=== PATIENT | female | born 1960 | race Caucasian/White ===

== ENCOUNTER 2020-12-11 16:22 | Outpatient (REF) | payer OTHER, SELFPAY ==
--- NOTE | ~2020-12-11 | US_ITS ---
EXAMINATION: US VENOUS ULTRASOUND WITH DOPPLER LOWER EXTREMITY, RIGHT CLINICAL INFORMATION: Right leg pain COMPARISON: None TECHNIQUE: Ultrasound of the deep veins is performed from the hip to the calf with compression sonography and color and pulse Doppler assessment. Spectral analysis with color-flow imaging is performed. FINDINGS: There is normal venous compression and respiratory variation and augmented flow. The visualized common femoral vein, superficial femoral vein, profunda femoral vein, popliteal vein, and the trifurcation region shows no evidence of deep venous thrombosis. There is no popliteal fossa cyst. US/US venous duplex LE RT IMPRESSION: No DVT demonstrated in the right lower extremity.
== END 2020-12-11 16:23 | disposition home or self-care (01) ==
LOC: HO.HMGCX 16:22
PROVIDERS: PCP Internal Medicine; Visit Provider Internal Medicine
DX: I82.409 Acute embolism and thrombosis of unspecified deep veins of unspecified lower extremity (principal)
CPT/HCPCS: 93971

== ENCOUNTER 2021-02-08 15:01 | Outpatient (REF) | payer OTHER, SELFPAY ==
--- NOTE | ~2021-02-08 | XR_ITS ---
EXAMINATION: XR KNEE, RIGHT CLINICAL INFORMATION: Pain right knee COMPARISON: None TECHNIQUE: Four views of the right knee. FINDINGS: A suprapatellar bursal effusion is noted on the lateral view. No fractures are identified. Minimal subchondral sclerosis of the medial tibial plateau is visualized. XR/XR knee RT 4V IMPRESSION: *Right knee joint effusion. *Minimal subchondral sclerosis of the medial tibial plateau which may represent early radiographic evidence of mild osteoarthritis.
== END 2021-02-08 15:02 | disposition home or self-care (01) ==
LOC: HO.HMGCX 15:01
PROVIDERS: PCP Internal Medicine; Visit Provider Physician Assistant Medical
DX: M25.561 Pain in right knee (principal)
CPT/HCPCS: 73564

== ENCOUNTER 2021-03-11 12:23 | Outpatient (REF) | payer OTHER, SELFPAY ==
--- NOTE | ~2021-03-11 | XR_ITS ---
EXAMINATION: XR KNEE STANDING, BILATERAL XR KNEE, RIGHT CLINICAL INFORMATION: Pain in right knee. COMPARISON: None available at the time of this dictation. TECHNIQUE: Bilateral frontal standing, right lateral patella sunrise view. FINDINGS: BONES: No fracture or dislocation is present. JOINTS: Narrowing of joint spaces and developed osteophytes from the edges of articular surfaces suggest degenerative osteoarthritis. SOFT TISSUE: Normal. XR/XR knee RT 2V IMPRESSION: Mild bilateral degenerative osteoarthritis involving medial more than lateral compartment symmetrically involving both sides.
--- NOTE | ~2021-03-11 | XR_ITS ---
EXAMINATION: XR KNEE STANDING, BILATERAL XR KNEE, RIGHT CLINICAL INFORMATION: Pain in right knee. COMPARISON: None available at the time of this dictation. TECHNIQUE: Bilateral frontal standing, right lateral patella sunrise view. FINDINGS: BONES: No fracture or dislocation is present. JOINTS: Narrowing of joint spaces and developed osteophytes from the edges of articular surfaces suggest degenerative osteoarthritis. SOFT TISSUE: Normal. XR/XR knee standing BI IMPRESSION: Mild bilateral degenerative osteoarthritis involving medial more than lateral compartment symmetrically involving both sides.
== END 2021-03-11 12:24 | disposition home or self-care (01) ==
LOC: HO.HOSX 12:23
PROVIDERS: Visit Provider Physician Assistant
DX: M17.11 Unilateral primary osteoarthritis, right knee (principal); M25.562 Pain in left knee
CPT/HCPCS: 73560; 73565

== ENCOUNTER 2021-04-19 08:32 | Outpatient (REF) | payer OTHER, SELFPAY ==
[2021-04-19 11:36] LABS: Hematocrit 46.2 % (37.0-47.0); Hemoglobin 15.2 g/dl (12.0-16.0); Mean Corpuscular HGB Conc 32.9 g/dl (31.0-35.0); Mean Corpuscular Hemoglobin 29.3 pg (27.0-33.0); Mean Corpuscular Volume 89.2 fL (80.0-98.0); Mean Platelet Volume 11.9 fL (9.4-12.3); Platelet Count 207 X10*3/uL (160-400); Red Blood Count 5.18 X10*6/uL (4.20-5.50); Red Cell Distribution Width 12.4 % (11.0-16.0); White Blood Count 4.4 X10*3/uL (4.8-10.8)
[2021-04-19 12:14] LABS: Alanine Aminotransferase 17 U/L (0-31); Alkaline Phosphatase 57 U/L (39-117); Anion Gap 12 (12-20); Aspartate Amino Transferase 19 U/L (5-31); Bilirubin Total 0.7 mg/dL (0.0-1.0); Blood Urea Nitrogen 13 mg/dL (9-16); Calcium 9.4 mg/dL (8.4-10.2); Carbon Dioxide 28 mmol/L (22-29); Chloride 107 mmol/L (96-108); Cholesterol 214 mg/dL; Estimated Glomerular Filt Rate > 60; Glucose Fasting 103 mg/dL (60-99); HDL Cholesterol 75 mg/dL; LDL Cholesterol Calculated 125 mg/dl; Potassium 5.5 mmol/L (3.3-5.1); Sodium 141 mmol/L (135-145); TSH reflex Free T4 1.07 uIU/mL (0.32-4.0); Total Protein 6.9 g/dL (6.5-8.0); Triglycerides 74 mg/dL; Vitamin D 25-OH Total 25.5 ng/mL (>30)
== END 2021-04-19 08:33 | disposition home or self-care (01) ==
LOC: HO.HMGCLDS 08:32
PROVIDERS: PCP Internal Medicine; Visit Provider Internal Medicine
DX: Z00.00 Encounter for general adult medical examination without abnormal findings (principal)
CPT/HCPCS: 36415; 80053; 80061; 82306; 84443; 85027

== ENCOUNTER 2021-06-08 12:46 | Outpatient (RCR) | payer OTHER, SELFPAY ==
--- NOTE | 2021-06-08 19:36 | MHC.PT.EP ---
[facility] [place] Office [place] Office [place] Office [address] [phone] F: [phone] F: [phone] F: [phone] F: [phone] Physical Therapy Plan of Care Date of Evaluation: Date of Surgery: Diagnosis: OA of R knee. Assessment: Pt is a 61 y/o female referred to PT for eval and treat of R knee OA who presents with signs and symptoms consistent with R knee dysfunction resulting in decreased tolerance and ability to perform ambulatory and standing tasks for duration, as well as negotiating stairs, and heavy HH chores secondary to decreased B hip and R knee strength, decreased R knee extension ROM, as well as decreased posture, TTP of medial joint line, and pain. Pt is deemed an appropriate candidate to receive skilled PT in order to address her physical limitations to improve her functional ability. Frequency and Duration: The patient will be seen 2 x / wk x 4 wks. Short Term Goals: Initiate HEP with evidence of compliance. Template Maker Goals: I with HEP. Pt will ascend and descend 1 fl of stairs with reciprocal fashion; initial: non reciprocal and painful. Improve R knee extension MMT by at least 1/2 MMT grade; initial 4/5 with mild pain. pt will report no longer painful walking long distances. Treatment Plan: Modalities to reduce pain, spasms and effusion. Manual therapy to restore motion and function. Therapeutic exercise to improve strength and flexibility. Neuromuscular re-education for posture and balance. Therapeutic activities to return to functional activities of daily living. Electronically signed by: Chico Polanco PT. Please sign and return to therapist. Thank you for your referral.
--- NOTE | 2021-06-11 10:30 | MHC.PT.DC ---
[facility] [place] Office [place] Office [place] Office [address] [phone] F: [phone] F: [phone] F: [phone] F: [phone] Physical Therapy Discharge Report Diagnosis: OA of R knee. Date of Surgery: Date of Evaluation: 06/08/21 Date of Discharge: 06/11/21 Treatments to Date: 1 Cancellations to Date: No Shows to Date: Discharge Status: Patient Elected to Stop Discharge Summary: Electronically signed by: Chico Polanco PT. Please sign and return to therapist. Thank you for your referral.
== END 2021-06-11 10:30 | disposition home or self-care (01) ==
LOC: HO.PTCHIC 12:46
PROVIDERS: PCP Internal Medicine; Visit Provider Internal Medicine
DX: M17.11 Unilateral primary osteoarthritis, right knee (principal)
CPT/HCPCS: 97110; 97161

== ENCOUNTER 2022-07-26 07:10 | Outpatient (REF) | payer OTHER, SELFPAY ==
[2022-07-26 11:29] LABS: Hematocrit 44.8 % (37.0-47.0); Hemoglobin 14.5 g/dl (12.0-16.0); Mean Corpuscular HGB Conc 32.4 g/dl (31.0-35.0); Mean Corpuscular Hemoglobin 28.7 pg (27.0-33.0); Mean Corpuscular Volume 88.5 fL (80.0-98.0); Mean Platelet Volume 11.9 fL (9.4-12.3); Platelet Count 197 X10*3/uL (160-400); Red Blood Count 5.06 X10*6/uL (4.20-5.50); Red Cell Distribution Width 12.7 % (11.0-16.0); White Blood Count 4.7 X10*3/uL (4.8-10.8)
[2022-07-26 11:44] LABS: Alanine Aminotransferase 19 U/L (0-31); Albumin Level 3.9 g/dL (3.5-5.0); Alkaline Phosphatase 61 U/L (39-117); Anion Gap 11 (12-20); Aspartate Amino Transferase 19 U/L (5-31); Bilirubin Total 0.8 mg/dL (0.0-1.0); Blood Urea Nitrogen 10 mg/dL (9-16); Calcium 9.5 mg/dL (8.4-10.2); Carbon Dioxide 27 mmol/L (22-29); Chloride 109 mmol/L (96-108); Cholesterol 222 mg/dL; Estimated Glomerular Filt Rate > 60; Glucose Fasting 100 mg/dL (60-99); HDL Cholesterol 75 mg/dL; LDL Cholesterol Calculated 130 mg/dl; Potassium 5.5 mmol/L (3.3-5.1); Sodium 141 mmol/L (135-145); Total Protein 6.7 g/dL (6.5-8.0); Triglycerides 89 mg/dL
[2022-07-26 12:03] LABS: TSH reflex Free T4 1.32 uIU/mL (0.32-4.0); Vitamin D 25-OH Total 21.6 ng/mL (>30)
== END 2022-07-26 07:11 | disposition home or self-care (01) ==
LOC: HO.HMGCLDS 07:10
PROVIDERS: PCP Internal Medicine; Visit Provider Internal Medicine
DX: Z00.00 Encounter for general adult medical examination without abnormal findings (principal)
CPT/HCPCS: 36415; 80053; 80061; 82306; 84443; 85027

== ENCOUNTER 2022-08-04 07:14 | Outpatient (REF) | payer OTHER, SELFPAY ==
[2022-08-04 11:56] LABS: Anion Gap 12 (12-20); Blood Urea Nitrogen 16 mg/dL (9-16); Calcium 9.5 mg/dL (8.4-10.2); Carbon Dioxide 26 mmol/L (22-29); Chloride 104 mmol/L (96-108); Estimated Glomerular Filt Rate > 60; Glucose Random 82 mg/dL (60-115); Sodium 138 mmol/L (135-145)
== END 2022-08-04 07:15 | disposition home or self-care (01) ==
LOC: HO.HMGCLDS 07:14
PROVIDERS: PCP Internal Medicine; Visit Provider Internal Medicine
DX: E87.5 Hyperkalemia (principal)
CPT/HCPCS: 36415; 80048

== ENCOUNTER 2023-01-12 07:02 | Outpatient (REF) | payer OTHER, SELFPAY ==
[2023-01-12 12:13] LABS: Alanine Aminotransferase 21 U/L (0-31); Alkaline Phosphatase 59 U/L (39-117); Anion Gap 9 (12-20); Aspartate Amino Transferase 21 U/L (5-31); Bilirubin Total 0.5 mg/dL (0.0-1.0); Blood Urea Nitrogen 17 mg/dL (9-16); Calcium 9.5 mg/dL (8.4-10.2); Carbon Dioxide 29 mmol/L (22-29); Chloride 105 mmol/L (96-108); Cholesterol 220 mg/dL (<200); Estimated Glomerular Filt Rate > 60; Glucose Fasting 88 mg/dL (60-99); HDL Cholesterol 81 mg/dL (>40); LDL Cholesterol Calculated 125 mg/dL (<100); Potassium 5.1 mmol/L (3.3-5.1); Sodium 138 mmol/L (135-145); Total Protein 7.2 g/dL (6.5-8.0); Triglycerides 73 mg/dL (<150)
== END 2023-01-12 07:03 | disposition home or self-care (01) ==
LOC: HO.HMGCLDS 07:02
PROVIDERS: PCP Internal Medicine; Visit Provider Internal Medicine
DX: Z00.00 Encounter for general adult medical examination without abnormal findings (principal); E87.5 Hyperkalemia; R03.0 Elevated blood-pressure reading, without diagnosis of hypertension
CPT/HCPCS: 36415; 80053; 80061

== ENCOUNTER 2023-02-17 10:53 | Outpatient (AMB) | payer OTHER, SELFPAY ==
[2023-02-17 10:55] VITALS: BP 154/90; PULSE 92; O2SAT 95; BMI 30.3
--- NOTE | 2023-02-17 10:55 | MHC.PC.OV ---
Vital Signs 02/17/23 10:55 Height 5 ft 5 in Weight 182 lb BMI 30.3 BP 154/90 H Blood Pressure Location Lt brachial Position Sitting Pulse 92 Pulse Source Pulse Oximeter Pulse Oximetry (%) 95 Oxygen Delivery Method Room Air Intake Visit Reasons: 6 month follow up Hyperkalemia Intake Note: Pt is here today for a 6 months follow up visit. Allergies No Known Allergies Allergy (Verified 02/17/23 10:56) Medication List - Last Reconciled 02/17/23 by Nabila Jarquin MD No Known Home Meds Tobacco use date assessed: 02/17/23 Fall risk assessment: No Falls in past year Last assessed Fall Risk: 02/17/23 Dental Screening Dental Screen Date: 02/17/23 Did you have a dental visit in the last 12 months?: Yes Did you have a dental problem in the last 6 months where you did not have access to dental care?: No Was dental information given to patient?: Patient has dentist HPI 6 month follow up Hyperkalemia HPI Details Pt presents for f/u of hypertension. She denies chest pain shortness of breath or headaches. Patient reports checking her blood pressure at home with the readings at 140/85 on average. She has been using a lot of cooking salt for many years, [facility] Medical History Colonoscopy refused Annual physical exam Family History Father No problems noted. Mother Hypertension Brother Bone cancer Lung cancer Social History Housing: House Patient Tobacco Use Status: Former Tobacco user (over 15 years ago) e-Cigarette/Vaping Use: Never Used Current occupational status: employed Cognitive needs: No Hearing needs: No Vision needs: Yes Questionnaire PHQ-9 Over the last 2 weeks, how often have you been bothered by any of the following problems? 1. Little interest or pleasure in doing things: not at all 2. Feeling down, depressed, or hopeless: not at all 3. Trouble falling or staying asleep, or sleeping too much: not at all 4. Feeling tired or having little energy: not at all 5. Poor appetite or overeating: not at all 6. Feeling bad about yourself - or that you are a failure or have let yourself or your family down: not at all 7. Trouble concentrating on things, such as reading the newspaper or watching television: not at all 8. Moving or speaking so slowly that other people could have noticed. Or the opposite - being so fidgety or restless that you have been moving around a lot more than usual: not at all 9. Thoughts that you would be better off or of hurting yourself in some way: not at all Total score: 0 Depression Screening Interpretation: Negative Depression Screening Done: Yes Source: Developed by Drs. Taco Vega, Asha Case, Gerson Montero and colleagues, with an educational kathryn from [email or web address]. Thrive Questionnaire Date Thrive assessed: 02/17/23 I am a: Patient What is your living situation today?: I have a steady place to live Within the past 12 months, did the food you bought not last and you didn't have the money to get more?: Never true Within the past 12 months, did you worry whether your food would run out before you got money to buy more?: Never true Do you have trouble paying for medicines?: No Do you have trouble getting transportation to medical appointments?: No Do you have trouble paying your heating and electricity bill?: No Do you have trouble taking care of your child, family member or friend?: No Do you have trouble with day-to-day activities such as bathing, preparing meals, shopping, managing finances, etc.?: No Are you currently unemployed and looking for a job?: No Are you interested in more education?: No Please select the resources that you would like help with: None Currently or been in a relationship where the following occur: no concerns reported AUDIT C Alcohol Use Questionnaire (AUDIT-C) 1. How often do you have a drink containing alcohol?: Never 3. How often do you have six or more drinks on one occasion?: Never Total Score: 0 FRANCES-7 AMB Questionnaire FRANCES-7 Date FRANCES - 7 assessed: 02/17/23 Feeling nervous, anxious, or on edge: 0 = Not at all Not being able to stop or control worryin = Not at all Worrying too much about different things: 0 = Not at all Trouble relaxin = Not at all Being so restless that it is hard to sit still: 0 = Not at all Becoming easily annoyed or irritable: 0 = Not at all Feeling afraid as if something awful might happen: 0 = Not at all Total FRANCES-7 score (0-4 normal; 5-9 mild; 10-14 moderate; 15-21 severe): 0 Source: Developed by Drs. Taco Vega, Asha Case, Gerson Montero and colleagues, with an educational kathryn from [email or web address]. Review of Systems Const All systems reviewed & are unremarkable except as noted in HPI and below Reports no additional complaints Eyes Reports no additional complaints ENT Reports no additional complaints Card Reports no additional complaints Resp Reports no additional complaints GI Reports no additional complaints Reports no additional complaints Physical exam (Primary Care) Vital Signs: Last Vital Signs Pulse 92 02/17/23 10:55 BP 154/90 H 02/17/23 10:55 Pulse Ox 95 02/17/23 10:55 Oxygen Delivery Method Room Air 02/17/23 10:55 BMI result Body Mass Index 30.3 Tobacco/Smoking Status: Tobacco use Status Tobacco use date assessed 02/17/23 02/17/23 10:59 Patient Tobacco Use Status Former Tobacco user (over 15 02/17/23 10:59 years ago) e-Cigarette/Vaping Use Never Used 02/17/23 10:59 PHQ-9: PHQ-9 Score PHQ-9: Total score 0 02/17/23 11:44 Depression Screening Interpretation: Negative Thrive Assessment: Date of Thrive Assessment Date Thrive assessed 02/17/23 02/17/23 11:05 Currently or been in a relationship where the following occur: no concerns reported Const General: no acute distress HENMT Head: Yes normal to inspection Ears: hearing grossly normal bilaterally Throat: Yes posterior oropharynx normal Neck Neck: Yes no lymphadenopathy and Yes supple Resp Effort & Inspection: normal respiratory effort Auscultation: clear to auscultation bilaterally Cardio Rhythm: regular rhythm Heart sounds: S1 normal heart sound present and S2 normal heart sound present GI Inspection: Yes normal to inspection Palpation (GI): Soft to palpation Percussion: Yes normal to percussion Auscultation: normal bowel sounds Assessment and Plan Assessment & Plan (1) Hyperkalemia: Code(s): E87.5 - Hyperkalemia Plan: Monitor potassium level (2) Annual physical exam: Code(s): Z00.00 - Encounter for general adult medical examination without abnormal findings Plan: Return for physical in 6 months with a fasting labs before (3) Positive colorectal cancer screening using Cologuard test: Code(s): R19.5 - Other fecal abnormalities Plan: Patient will have a colonoscopy (4) Elevated BP without diagnosis of hypertension: Comment: Patient refuses to take medications for hypertension Code(s): R03.0 - Elevated blood-pressure reading, without diagnosis of hypertension Plan: Low sodium diet increase physical activity weight loss discussed with the patient. She is refusing to take medication for hypertension. the risks of untreated hypertension including [place] stroke sudden kidney failure discussed with the patient. Orders: Orders Comprehensive [place]. Panel Fast 6 Months E87.5 - Hyperkalemia, Z00.00 - Encounter for general adult medical examination without abnormal findings Complete Blood Count Auto Diff 6 Months E87.5 - Hyperkalemia, Z00.00 - Encounter for general adult medical examination without abnormal findings Lipid Panel 6 Months E87.5 - Hyperkalemia, Z00.00 - Encounter for general adult medical examination without abnormal findings TSH reflex Free T4 6 Months E87.5 - Hyperkalemia, Z00.00 - Encounter for general adult medical examination without abnormal findings Vitamin D 25-OH Total 6 Months E87.5 - Hyperkalemia, Z00.00 - Encounter for general adult medical examination without abnormal findings Coding Level of Care Code Est Pt Level 4 (89463) Diagnoses Hyperkalemia E87.5 Annual physical exam Z00.00 Positive colorectal cancer screening using Cologuard test R19.5 Elevated BP without diagnosis of hypertension R03.0
== END 2023-02-17 14:57 | disposition home or self-care (01) ==
PROVIDERS: PCP Internal Medicine; Visit Provider Internal Medicine
DX: E87.5 Hyperkalemia (principal); Z00.00 Encounter for general adult medical examination without abnormal findings; R19.5 Other fecal abnormalities; R03.0 Elevated blood-pressure reading, without diagnosis of hypertension
CPT/HCPCS: 99214

== ENCOUNTER 2023-02-28 13:44 | Outpatient (AMB) | payer OTHER, SELFPAY ==
[2023-02-28 13:46] VITALS: BP 146/86; PULSE 94; O2SAT 97; BMI 30.3
--- NOTE | 2023-02-28 13:46 | A.OFFPC_ITS ---
Vital Signs 02/28/23 13:46 Height 5 ft 5 in Weight 182 lb BMI 30.3 BP 146/86 H Blood Pressure Location Lt brachial Position Sitting Pulse 94 Pulse Source Pulse Oximeter Pulse Oximetry (%) 97 Oxygen Delivery Method Room Air Intake Visit Reasons: Follow up BP Intake Note: Pt is here today for a follow up visit on BP. Allergies No Known Allergies Allergy (Verified 02/28/23 13:49) Medication List - Last Reconciled 02/28/23 by Nabila Jarquin MD meclizine 25 mg PO BID PRN olmesartan 5 mg PO DAILY Tobacco use date assessed: 02/28/23 HPI Follow up BP HPI Details Patient presents for the follow-up on hypertension. She has been checking her blood pressure at home with the readings of the highest 150/90. Patient denies headache chest pain shortness of breath, [facility] Medical History (Updated 02/28/23 @ 14:20 by Nabila Jarquin MD) Colonoscopy refused Annual physical exam Family History Father No problems noted. Mother Hypertension Brother Bone cancer Lung cancer Social History Housing: House Patient Tobacco Use Status: Former Tobacco user (over 15 years ago) e-Cigarette/Vaping Use: Never Used Current occupational status: employed Cognitive needs: No Hearing needs: No Vision needs: Yes Questionnaire Thrive Questionnaire Date Thrive assessed: 02/17/23 FRANCES-7 AMB Questionnaire FRANCES-7 Date FRANCES - 7 assessed: 02/17/23 Source: Developed by Drs. Taco Vega, Asha Case, Gerson Montero and colleagues, with an educational kathryn from [employer]. Review of Systems Const All systems reviewed & are unremarkable except as noted in HPI and below Reports no additional complaints Eyes Reports no additional complaints ENT Reports no additional complaints Card Reports no additional complaints Resp Reports no additional complaints GI Reports no additional complaints Reports no additional complaints Physical exam (Primary Care) Vital Signs: Last Vital Signs Pulse 94 02/28/23 13:46 BP 146/86 H 02/28/23 13:46 Pulse Ox 97 02/28/23 13:46 Oxygen Delivery Method Room Air 02/28/23 13:46 BMI result Body Mass Index 30.3 Tobacco/Smoking Status: Tobacco use Status Tobacco use date assessed 02/28/23 02/28/23 13:52 Patient Tobacco Use Status Former Tobacco user (over 15 02/28/23 13:46 years ago) e-Cigarette/Vaping Use Never Used 02/28/23 13:46 Thrive Assessment: Date of Thrive Assessment Date Thrive assessed 02/17/23 02/28/23 13:46 Const General: no acute distress HENMT Head: Yes normal to inspection Face and sinus: Yes normal facial exam Throat: Yes posterior oropharynx normal Eyes General: appearance normal, both eyes and all related structures Neck Neck: Yes supple Resp Effort & Inspection: normal respiratory effort Auscultation: clear to auscultation bilaterally Cardio Rhythm: regular rhythm Heart sounds: S1 normal heart sound present and S2 normal heart sound present GI Inspection: Yes normal to inspection Palpation (GI): Soft to palpation Assessment and Plan Assessment & Plan (1) HTN (hypertension): Code(s): I10 - Essential (primary) hypertension Plan: Start 5 mg of olmesartan, increase physical activity weight loss discussed with the patient, check basic metabolic panel in 1 week and follow-up in 1 month Orders: Orders Basic Metabolic Panel 1 Week I10 - Essential (primary) hypertension Medications: New olmesartan 5 mg PO DAILY 90 tabs 0RF Coding Level of Care Code Est Pt Level 3 (06651) Diagnoses HTN (hypertension) I10
== END 2023-02-28 14:21 | disposition home or self-care (01) ==
PROVIDERS: PCP Internal Medicine; Visit Provider Internal Medicine
DX: I10 Essential (primary) hypertension (principal)
CPT/HCPCS: 99213

== ENCOUNTER 2023-03-08 06:56 | Outpatient (REF) | payer OTHER, SELFPAY ==
[2023-03-08 11:50] LABS: Anion Gap 12 (12-20); Blood Urea Nitrogen 17 mg/dL (9-16); Calcium 9.3 mg/dL (8.4-10.2); Carbon Dioxide 25 mmol/L (22-29); Chloride 106 mmol/L (96-108); Estimated Glomerular Filt Rate > 60; Glucose Random 88 mg/dL (60-115); Potassium 3.8 mmol/L (3.3-5.1); Sodium 139 mmol/L (135-145)
== END 2023-03-08 06:57 | disposition home or self-care (01) ==
LOC: HO.HMGCLDS 06:56
PROVIDERS: PCP Internal Medicine; Visit Provider Internal Medicine
DX: I10 Essential (primary) hypertension (principal)
CPT/HCPCS: 36415; 80048

== ENCOUNTER 2023-04-03 13:59 | Outpatient (AMB) | payer OTHER, SELFPAY ==
--- NOTE | 2023-04-03 14:16 | MHC.PC.OV ---
Vital Signs 04/03/23 14:17 Height 5 ft 5 in Weight 180 lb BMI 30.0 BP 118/66 Blood Pressure Location Lt brachial Position Sitting Pulse 80 Pulse Source Pulse Oximeter Pulse Oximetry (%) 99 Oxygen Delivery Method Room Air Intake Visit Reasons: 1 Month follow up Intake Note: Pt is here today for 1 month follow up visit on BP. Allergies No Known Allergies Allergy (Verified 04/03/23 14:19) Medication List - Last Reconciled 04/03/23 by Nabila Jarquin MD olmesartan 5 mg PO DAILY Tobacco use date assessed: 02/28/23 HPI 1 Month follow up HPI Details PATIENT PRESENTS FOR THE FOLLOW-UP ON HYPERTENSION. PFSH Medical History Colonoscopy refused Annual physical exam Family History Father No problems noted. Mother Hypertension Brother Bone cancer Lung cancer Social History Housing: House Patient Tobacco Use Status: Former Tobacco user (over 15 years ago) e-Cigarette/Vaping Use: Never Used Current occupational status: employed Cognitive needs: No Hearing needs: No Vision needs: Yes Questionnaire Thrive Questionnaire Date Thrive assessed: 02/17/23 FRANCES-7 AMB Questionnaire FRANCES-7 Date FRANCES - 7 assessed: 02/17/23 Source: Developed by Drs. Taco Vega, Asha Case, Gerson Montero and colleagues, with an educational kathryn from [employer]. Review of Systems Const All systems reviewed & are unremarkable except as noted in HPI and below Reports no additional complaints Eyes Reports no additional complaints ENT Reports no additional complaints Card Reports no additional complaints Resp Reports no additional complaints GI Reports no additional complaints Physical exam (Primary Care) Vital Signs: Last Vital Signs Pulse 80 04/03/23 14:17 BP 118/66 04/03/23 14:17 Pulse Ox 99 04/03/23 14:17 Oxygen Delivery Method Room Air 04/03/23 14:17 BMI result Body Mass Index 30.0 Tobacco/Smoking Status: Tobacco use Status Tobacco use date assessed 02/28/23 04/03/23 14:20 Patient Tobacco Use Status Former Tobacco user (over 15 04/03/23 14:20 years ago) e-Cigarette/Vaping Use Never Used 04/03/23 14:20 Thrive Assessment: Date of Thrive Assessment Date Thrive assessed 02/17/23 04/03/23 14:20 Const General: no acute distress HENMT Head: Yes normal to inspection Throat: Yes posterior oropharynx normal Resp Effort & Inspection: normal respiratory effort Auscultation: clear to auscultation bilaterally Cardio Rhythm: regular rhythm Heart sounds: S1 normal heart sound present and S2 normal heart sound present Assessment and Plan Assessment & Plan (1) HTN (hypertension): Code(s): I10 - Essential (primary) hypertension Plan: Continue olmesartan low-sodium diet regular physical activity. pt will return in July for physical with a fasting labs before Medications: Refilled olmesartan 5 mg PO DAILY 90 tabs 3RF Coding Level of Care Code Est Pt Level 3 (65437) Diagnoses HTN (hypertension) I10
[2023-04-03 14:17] VITALS: BP 118/66; PULSE 80; O2SAT 99
== END 2023-04-03 14:50 | disposition home or self-care (01) ==
PROVIDERS: PCP Internal Medicine; Visit Provider Internal Medicine
DX: I10 Essential (primary) hypertension (principal)
CPT/HCPCS: 99213

== ENCOUNTER 2023-08-30 08:16 | Outpatient (AMB) | payer OTHER, SELFPAY ==
--- NOTE | 2023-08-30 08:42 | MHC.OFFWIV ---
Intake Vital Signs 08/30/23 08:45 Height 5 ft 5 in Weight 187 lb BMI 31.1 BP 120/82 Blood Pressure Location Rt brachial Position Sitting Pulse 90 Pulse Source Pulse Oximeter Temp 98.3 F Temp Source Oral Pulse Oximetry (%) 97 Oxygen Delivery Method Room Air Intake Visit Reasons: EP LT leg, red/bleeding/itch ?Poison Suzie Intake Note: pt here c/o painful, itchy rash LT leg Patient Tobacco Use Status: Former Tobacco user (over 15 years ago) Allergies No Known Allergies Allergy (Verified 08/30/23 08:42) Do you need a note to return to daycare/school/sports/work: No HPI HPI Comments History of Present Illness Details She presents for L rash x a few weeks Little bit on R ankle. No where else on body She denies similar rashes in past + itchy No pain, 0/10 Feels hot; no fevers She tried triple antibiotic ointment and cortisone She was working outside a little PFSH Medical History Colonoscopy refused Annual physical exam Family History Father No problems noted. Mother Hypertension Brother Bone cancer Lung cancer Social History Housing: House Patient Tobacco Use Status: Former Tobacco user (over 15 years ago) e-Cigarette/Vaping Use: Never Used Current occupational status: employed Cognitive needs: No Hearing needs: No Vision needs: Yes Review of Systems Const Denies chills and Denies fever(s) Card Denies chest pain and Denies dyspnea Resp Denies dyspnea Musc Denies back pain Skin/Breast Reports pruritus, Reports lesions and Reports rash Physical Exam Vital Signs: Last Vital Signs Temp 98.3 F 08/30/23 08:45 Pulse 90 08/30/23 08:45 BP 120/82 08/30/23 08:45 Pulse Ox 97 08/30/23 08:45 Oxygen Delivery Method Room Air 08/30/23 08:45 BMI result Body Mass Index 31.1 General: Non-toxic, NAD. Speaking full sentences. Skin: Warm dry throughout. LLE pt has erythematous open and scabbed lesions with + excoriations along anterior L duvall and lateral L ankle. No bleeding or active discharge. Eye: EOMI Respiratory: No respiratory distress MSK: Full ROM extremities. Neurology: A/O. No aphasia or facial droop. Gait without abnormality Psych: Good mood and affect Assessment & Plan Assessment & Plan (1) Contact dermatitis: Code(s): L25.9 - Unspecified contact dermatitis, unspecified cause Qualifiers: Contact dermatitis type: irritant Contact dermatitis trigger: unspecified trigger Qualified Code(s): L24.9 - Irritant contact dermatitis, unspecified cause Plan: Patient seen and evaluated. Non-toxic appearing No cellulitis on exam Prednisone to take with food. Avoid alcohol and nsaids Discussed triple angibiotic on open areas. D/C hydrocortisone ointment Avoid scratching Patient gave verbal understanding and had no additional questions or concerns at time of discharge All questions answered Medications: New prednisone see taper instructions; 60mg po qd x 2 days, 50mg po qd x 2 days, 40mg po qd x 2 days, 30mg po qd x 2 days, 20mg po qd x 2 days then 10mg po qd x 2 days 10 mg PO DIRECTED 42 tabs 0RF Coding Level of Care Code Est Pt Level 3 (13702) Diagnoses Irritant contact dermatitis, unspecified trigger L24.9 Contact dermatitis type: irritant Contact dermatitis trigger: unspecified trigger
[2023-08-30 08:45] VITALS: BP 120/82; PULSE 90; TEMP 36.8; O2SAT 97; BMI 31.1
== END 2023-08-30 09:22 | disposition home or self-care (01) ==
PROVIDERS: PCP Internal Medicine; Visit Provider Physician Assistant
DX: L24.9 Irritant contact dermatitis, unspecified cause (principal)
CPT/HCPCS: 99213

== ENCOUNTER 2023-12-25 07:42 | Outpatient (REF) | payer OTHER, SELFPAY ==
[2023-12-25 10:11] LABS: MANUAL DIFF FLAG NO
[2023-12-25 10:18] LABS: Eosinophils Absolute Auto 0.1 X10*3/uL (0.0-0.4); Eosinophils Percent Auto 2.4 % (0-4); Hematocrit 44.1 % (37.0-47.0); Hemoglobin 14.2 g/dl (12.0-16.0); Imm Gran Abs Auto 0.01 X10*3/uL (0.00-0.03); Imm Gran Pct Auto 0.2 % (0.0-0.4); Lymphocytes Absolute Auto 1.8 X10*3/uL (1.2-4.9); Lymphocytes Percent Auto 43.9 % (20-40); Mean Corpuscular HGB Conc 32.2 g/dl (31.0-35.0); Mean Corpuscular Hemoglobin 28.6 pg (27.0-33.0); Mean Corpuscular Volume 88.9 fL (80.0-98.0); Mean Platelet Volume 11.7 fL (9.4-12.3); Monocytes Absolute Auto 0.4 X10*3/uL (0.1-1.2); Monocytes Percent Auto 8.8 % (2-11); Neutrophils Absolute Auto 1.8 x10*3/uL (2.0-8.3); Neutrophils Percent Auto 43.7 % (45-73); Platelet Count 202 X10*3/uL (160-400); Red Blood Count 4.96 X10*6/uL (4.20-5.50); Red Cell Distribution Width 12.3 % (11.0-16.0); White Blood Count 4.2 X10*3/uL (4.8-10.8)
[2023-12-25 10:55] LABS: Alanine Aminotransferase 61 U/L (0-31); Albumin Level 3.9 g/dL (3.5-5.0); Alkaline Phosphatase 68 U/L (39-117); Anion Gap 10 (12-20); Aspartate Amino Transferase 36 U/L (5-31); Bilirubin Total 0.7 mg/dL (0.0-1.0); Blood Urea Nitrogen 15 mg/dL (9-16); Calcium 9.3 mg/dL (8.4-10.2); Carbon Dioxide 26 mmol/L (22-29); Chloride 108 mmol/L (96-108); Cholesterol 212 mg/dL (<200); Estimated Glomerular Filt Rate > 60; Glucose Fasting 91 mg/dL (60-99); HDL Cholesterol 80 mg/dL (>40); LDL Cholesterol Calculated 120 mg/dL (<100); Potassium 4.7 mmol/L (3.3-5.1); Sodium 139 mmol/L (135-145); Total Protein 7.4 g/dL (6.5-8.0); Triglycerides 61 mg/dL (<150)
[2023-12-25 11:25] LABS: Vitamin D 25-OH Total 29.6 ng/mL (>30)
== END 2023-12-25 07:43 | disposition home or self-care (01) ==
LOC: HO.HMGCLDS 07:42
PROVIDERS: PCP Internal Medicine; Visit Provider Internal Medicine
DX: Z00.00 Encounter for general adult medical examination without abnormal findings (principal); E87.5 Hyperkalemia
CPT/HCPCS: 36415; 80053; 80061; 82306; 84443; 85025

== ENCOUNTER 2023-12-29 11:55 | Outpatient (AMB) | payer OTHER, SELFPAY ==
--- NOTE | 2023-12-29 11:57 | MHC.PC.OV ---
Vital Signs 12/29/23 11:58 Height 5 ft 5 in Weight 190 lb BMI 31.6 BP 118/66 Blood Pressure Location Rt brachial Position Sitting Pulse 74 Pulse Source Pulse Oximeter Pulse Oximetry (%) 98 Oxygen Delivery Method Room Air Intake Visit Reasons: follow-up- Intake Note: Pt is here today for a follow up visit on labs. Allergies No Known Allergies Allergy (Verified 12/29/23 11:59) Medication List - Last Reconciled 12/29/23 by Nabila Jarquin MD olmesartan 5 mg PO DAILY Tobacco use date assessed: 12/29/23 Dental Screening Dental Screen Date: 02/17/23 HPI follow-up- HPI Details Pt presents for PE. PFS Medical History (Updated 12/29/23 @ 12:46 by Nabila Jarquin MD) Colonoscopy refused Annual physical exam Family History Father No problems noted. Mother Hypertension Brother Bone cancer Lung cancer Social History Housing: House Patient Tobacco Use Status: Former Tobacco user (over 15 years ago) e-Cigarette/Vaping Use: Never Used Current occupational status: employed Cognitive needs: No Hearing needs: No Vision needs: Yes Questionnaire Thrive Questionnaire Date Thrive assessed: 02/17/23 I am a: Patient What is your living situation today?: I choose not to answer this question Within the past 12 months, did the food you bought not last and you didn't have the money to get more?: I choose not to answer this question Within the past 12 months, did you worry whether your food would run out before you got money to buy more?: I choose not to answer this question Do you have trouble paying for medicines?: No Do you have trouble getting transportation to medical appointments?: I choose not to answer this question Do you have trouble paying your heating and electricity bill?: I choose not to answer this question Do you have trouble taking care of your child, family member or friend?: I choose not to answer this question Do you have trouble with day-to-day activities such as bathing, preparing meals, shopping, managing finances, etc.?: I choose not to answer this question Are you currently unemployed and looking for a job?: I choose not to answer this question Are you interested in more education?: I choose not to answer this question Please select the resources that you would like help with: None Currently or been in a relationship where the following occur: I choose not to answer THRIVE Score: 0 AUDIT C Alcohol Use Questionnaire (AUDIT-C) 1. How often do you have a drink containing alcohol?: Never 3. How often do you have six or more drinks on one occasion?: Never Total Score: 0 FRANCES-7 AMB Questionnaire FRANCES-7 Date FRANCES - 7 assessed: 02/17/23 Feeling nervous, anxious, or on edge: 0 = Not at all Not being able to stop or control worryin = Not at all Worrying too much about different things: 0 = Not at all Trouble relaxin = Not at all Being so restless that it is hard to sit still: 0 = Not at all Becoming easily annoyed or irritable: 0 = Not at all Feeling afraid as if something awful might happen: 0 = Not at all Total FRANCES-7 score (0-4 normal; 5-9 mild; 10-14 moderate; 15-21 severe): 0 Source: Developed by Drs. Taco Vega, Asha Case, Gerson Montero and colleagues, with an educational kathryn from [employer]. Review of Systems Const All systems reviewed & are unremarkable except as noted in HPI and below Eyes Reports no additional complaints ENT Reports no additional complaints Card Reports no additional complaints Resp Reports no additional complaints GI Reports no additional complaints Physical exam (Primary Care) Vital Signs: Last Vital Signs Pulse 74 12/29/23 11:58 BP 118/66 12/29/23 11:58 Pulse Ox 98 12/29/23 11:58 Oxygen Delivery Method Room Air 12/29/23 11:58 BMI result Body Mass Index 31.6 Tobacco/Smoking Status: Tobacco use Status Tobacco use date assessed 12/29/23 12/29/23 12:01 Patient Tobacco Use Status Former Tobacco user (over 15 12/29/23 12:01 years ago) e-Cigarette/Vaping Use Never Used 12/29/23 12:01 Thrive Assessment: Date of Thrive Assessment Date Thrive assessed 02/17/23 12/29/23 12:01 Currently or been in a relationship where the following occur: I choose not to answer Const General: no acute distress HENMT Head: Yes normal to inspection Ears: hearing grossly normal bilaterally Face and sinus: Yes normal facial exam Mouth: Normal oral and palatal mucosa present Eyes General: appearance normal, both eyes and all related structures Neck Neck: Yes no lymphadenopathy and Yes supple Resp Effort & Inspection: normal respiratory effort Auscultation: clear to auscultation bilaterally Cardio Rhythm: regular rhythm Heart sounds: S1 normal heart sound present and S2 normal heart sound present GI Inspection: Yes normal to inspection Palpation (GI): Soft to palpation Percussion: Yes normal to percussion Auscultation: normal bowel sounds Coding Level of Care Code Est Pt Prev Care >65y(78919) Diagnoses HTN (hypertension) I10 Annual physical exam Z00.00 Elevated LFTs R79.89 Eczema L30.9 Assessment & Plan Assessment & Plan (1) HTN (hypertension): Code(s): I10 - Essential (primary) hypertension Category: Medical Plan: cont Olmesartan (2) Annual physical exam: Code(s): Z00.00 - Encounter for general adult medical examination without abnormal findings Category: Medical Plan: Well-balanced diet regular exercise weight loss discussed with the patient she is up-to-date with the mammogram and will have colonoscopy for positive Cologuard (3) Elevated LFTs: Code(s): R79.89 - Other specified abnormal findings of blood chemistry Category: Medical Plan: Decreasing caloric and simple carbohydrates intake, increasing physical activity and weight loss discussed with the patient. repeat LFTs in 1 month (4) Eczema: Comment: LLE Code(s): L30.9 - Dermatitis, unspecified Category: Medical Plan: Use triamcinolone cream Orders: Orders Complete Blood Count Auto Diff 1 Year I10 - Essential (primary) hypertension, Z00.00 - Encounter for general adult medical examination without abnormal findings Vitamin D 25-OH Total 1 Year I10 - Essential (primary) hypertension, Z00.00 - Encounter for general adult medical examination without abnormal findings TSH reflex Free T4 1 Year I10 - Essential (primary) hypertension, Z00.00 - Encounter for general adult medical examination without abnormal findings Liver Panel 1 Month R79.89 - Other specified abnormal findings of blood chemistry Comprehensive [place]. Panel Fast 1 Year I10 - Essential (primary) hypertension, Z00.00 - Encounter for general adult medical examination without abnormal findings Lipid Panel 1 Year I10 - Essential (primary) hypertension, Z00.00 - Encounter for general adult medical examination without abnormal findings Medications: New triamcinolone acetonide 0.1% 1 appl topical DAILY 453.6 grams 1RF
[2023-12-29 11:58] VITALS: BP 118/66; PULSE 74; O2SAT 98; BMI 31.6
== END 2023-12-29 12:41 | disposition home or self-care (01) ==
PROVIDERS: PCP Internal Medicine; Visit Provider Internal Medicine
DX: I10 Essential (primary) hypertension (principal); Z00.00 Encounter for general adult medical examination without abnormal findings; R79.89 Other specified abnormal findings of blood chemistry; L30.9 Dermatitis, unspecified

== ENCOUNTER 2024-02-01 06:58 | Outpatient (REF) | payer OTHER, SELFPAY ==
[2024-02-01 10:28] LABS: Alanine Aminotransferase 57 U/L (0-31); Albumin Level 3.9 g/dL (3.5-5.0); Alkaline Phosphatase 65 U/L (39-117); Aspartate Amino Transferase 41 U/L (5-31); Bilirubin Direct 0.2 mg/dL (0.0-0.5); Bilirubin Total 0.4 mg/dL (0.0-1.0); Total Protein 7.1 g/dL (6.5-8.0)
== END 2024-02-01 06:59 | disposition home or self-care (01) ==
LOC: HO.HMGCLDS 06:58
PROVIDERS: PCP Internal Medicine; Visit Provider Internal Medicine
DX: R79.89 Other specified abnormal findings of blood chemistry (principal)
CPT/HCPCS: 36415; 80076

== ENCOUNTER 2024-02-19 11:47 | Outpatient (AMB) | payer OTHER, SELFPAY ==
[2024-02-19 11:48] VITALS: BP 118/70; PULSE 80; O2SAT 98; BMI 30.9
--- NOTE | 2024-02-19 11:48 | A.OFFPC_ITS ---
Vital Signs 02/19/24 11:48 Height 5 ft 5 in Weight 186 lb BMI 30.9 BP 118/70 Blood Pressure Location Rt brachial Position Sitting Pulse 80 Pulse Source Pulse Oximeter Pulse Oximetry (%) 98 Intake Visit Reasons: Follow up on labs, and rash Intake Note: Pt is here today for a follow up visit on lab results and rash. Allergies No Known Allergies Allergy (Verified 02/19/24 12:17) Medication List - Last Reconciled 02/19/24 by Nabila Jarquin MD olmesartan 5 mg PO DAILY triamcinolone acetonide 0.1% 1 appl topical DAILY Tobacco use date assessed: 02/19/24 Fall risk assessment: No Falls in past year Last assessed Fall Risk: 02/19/24 Dental Screening Dental Screen Date: 02/19/24 Did you have a dental visit in the last 12 months?: Yes Did you have a dental problem in the last 6 months where you did not have access to dental care?: No Was dental information given to patient?: Patient has dentist HPI Follow up on labs, and rash HPI Details Pt presents for f/u HTN and elevated LFT's. Patient has been following ADA diet decreasing caloric and simple carbohydrates intake and exercising more. She denies abdominal pain. [facility] Medical History (Updated 02/19/24 @ 12:54 by Nabila Jarquin MD) Colonoscopy refused Annual physical exam Surgical History (Updated 02/19/24 @ 12:17 by Trever Blackman CMA) No pertinent past surgical history Family History Father No problems noted. Mother Hypertension Brother Bone cancer Lung cancer Social History Housing: House Patient Tobacco Use Status: Former Tobacco user (over 15 years ago) e-Cigarette/Vaping Use: Never Used service: No Current occupational status: employed Cognitive needs: No Hearing needs: No Vision needs: Yes Questionnaire PHQ-9 Over the last 2 weeks, how often have you been bothered by any of the following problems? 1. Little interest or pleasure in doing things: not at all 2. Feeling down, depressed, or hopeless: not at all 3. Trouble falling or staying asleep, or sleeping too much: not at all 4. Feeling tired or having little energy: not at all 5. Poor appetite or overeating: not at all 6. Feeling bad about yourself - or that you are a failure or have let yourself or your family down: not at all 7. Trouble concentrating on things, such as reading the newspaper or watching television: not at all 8. Moving or speaking so slowly that other people could have noticed. Or the opposite - being so fidgety or restless that you have been moving around a lot more than usual: not at all 9. Thoughts that you would be better off or of hurting yourself in some way: not at all Total score: 0 Depression Screening Interpretation: Negative Depression Screening Done: Yes 15741 - PHQ-9 Billing: Yes Source: Developed by Drs. Taco Vega, Asha Case, Gerson Montero and colleagues, with an educational kathryn from [employer]. Thrive Questionnaire Date Thrive assessed: 02/19/24 I am a: Patient What is your living situation today?: I choose not to answer this question Within the past 12 months, did the food you bought not last and you didn't have the money to get more?: I choose not to answer this question Within the past 12 months, did you worry whether your food would run out before you got money to buy more?: I choose not to answer this question Do you have trouble paying for medicines?: I choose not to answer this question Do you have trouble getting transportation to medical appointments?: I choose not to answer this question Do you have trouble paying your heating and electricity bill?: I choose not to answer this question Do you have trouble taking care of your child, family member or friend?: I choose not to answer this question Do you have trouble with day-to-day activities such as bathing, preparing meals, shopping, managing finances, etc.?: I choose not to answer this question Are you currently unemployed and looking for a job?: I choose not to answer this question Are you interested in more education?: I choose not to answer this question Please select the resources that you would like help with: None Currently or been in a relationship where the following occur: I choose not to answer THRIVE Score: 0 AUDIT C Alcohol Use Questionnaire (AUDIT-C) 1. How often do you have a drink containing alcohol?: Never 3. How often do you have six or more drinks on one occasion?: Never Total Score: 0 Score Reviewed/Action Taken: Yes FRANCES-7 AMB Questionnaire FRANCES-7 Date FRANCES - 7 assessed: 02/19/24 Feeling nervous, anxious, or on edge: 0 = Not at all Not being able to stop or control worryin = Not at all Worrying too much about different things: 0 = Not at all Trouble relaxin = Not at all Being so restless that it is hard to sit still: 0 = Not at all Becoming easily annoyed or irritable: 0 = Not at all Feeling afraid as if something awful might happen: 0 = Not at all Total FRANCES-7 score (0-4 normal; 5-9 mild; 10-14 moderate; 15-21 severe): 0 Source: Developed by Drs. Taco Vega, Asha Case, Gerson Montero and colleagues, with an educational kathryn from [employer]. FRANCES-7 Assessment Billing FRANCES-7 Assessment Tool: FRANCES-7 Assessment 33431 Review of Systems Const All systems reviewed & are unremarkable except as noted in HPI and below Eyes Reports no additional complaints ENT Reports no additional complaints Card Reports no additional complaints Resp Reports no additional complaints GI Reports no additional complaints Reports no additional complaints Physical exam (Primary Care) Vital Signs: Last Vital Signs Pulse 80 02/19/24 11:48 BP 118/70 02/19/24 11:48 Pulse Ox 98 02/19/24 11:48 BMI result Body Mass Index 30.9 Tobacco/Smoking Status: Tobacco use Status Tobacco use date assessed 02/19/24 02/19/24 11:49 Patient Tobacco Use Status Former Tobacco user (over 15 02/19/24 11:49 years ago) e-Cigarette/Vaping Use Never Used 02/19/24 11:49 PHQ-9: PHQ-9 Score PHQ-9: Total score 0 02/19/24 12:58 Depression Screening Interpretation: Negative Thrive Assessment: Date of Thrive Assessment Date Thrive assessed 02/19/24 02/19/24 11:56 Currently or been in a relationship where the following occur: I choose not to answer Const General: no acute distress HENMT Head: Yes normal to inspection Ears: hearing grossly normal bilaterally Face and sinus: Yes normal facial exam Throat: Yes posterior oropharynx normal Neck Neck: Yes supple Resp Effort & Inspection: normal respiratory effort Auscultation: clear to auscultation bilaterally Cardio Rhythm: regular rhythm Heart sounds: S1 normal heart sound present and S2 normal heart sound present GI Inspection: Yes normal to inspection Palpation (GI): Soft to palpation Percussion: Yes normal to percussion Auscultation: normal bowel sounds Coding Level of Care Code Est Pt Level 4 (48006) Diagnoses Elevated LFTs R7. Positive colorectal cancer screening using Cologuard test R19.5 HTN (hypertension) I10 Additional Codes FRANCES-7 Assessment Billing - FRANCES-7 Assessment Tool: FRANCES-7 Assessment 72500 ([id number]) PHQ-9 - 69760 - PHQ-9 Billing: Yes ([id number]) Assessment & Plan Assessment & Plan (1) Elevated LFTs: Code(s): R7.89 - Other specified abnormal findings of blood chemistry Category: Medical Plan: Low simple carbohydrates diet, avoidance of alcohol and NSAIDs increasing physical activity weight loss discussed with the patient. obtain liver ultrasound and monitor LFTs in 6 months (2) Positive colorectal cancer screening using Cologuard test: Comment: 03/2024 GI appointment Code(s): R19.5 - Other fecal abnormalities Category: Medical Plan: Patient will see GI next month to schedule colonoscopy (3) HTN (hypertension): Code(s): I10 - Essential (primary) hypertension Category: Medical Plan: Continue olmesartan Orders: Orders Liver Kidney Microsomal Ab 6 Months R19.5 - Other fecal abnormalities, R79.89 - Other specified abnormal findings of blood chemistry Liver Panel 6 Months R19.5 - Other fecal abnormalities, R79.89 - Other specified abnormal findings of blood chemistry US abdomen limited Today R79.89 - Other specified abnormal findings of blood chemistry Hepatitis A,B,C Profile 6 Months R19.5 - Other fecal abnormalities, R79.89 - Other specified abnormal findings of blood chemistry
== END 2024-02-19 13:00 | disposition home or self-care (01) ==
PROVIDERS: PCP Internal Medicine; Visit Provider Internal Medicine
DX: R79.89 Other specified abnormal findings of blood chemistry (principal); R19.5 Other fecal abnormalities; I10 Essential (primary) hypertension

== ENCOUNTER → 2024-02-19 11:47 | Outpatient (BNVA) | payer OTHER, SELFPAY | PROVIDERS: PCP Internal Medicine; Visit Provider Internal Medicine | DX: R79.89 Other specified abnormal findings of blood chemistry (principal); R19.5 Other fecal abnormalities; I10 Essential (primary) hypertension; Z79.899 Other long term (current) drug therapy | CPT/HCPCS: 96127 ==

== ENCOUNTER 2024-03-01 08:16 | Outpatient (REF) | payer OTHER, SELFPAY ==
--- NOTE | ~2024-03-01 | US_ITS ---
EXAMINATION: US ABDOMEN LIMITED HISTORY: R79.89 - Other specified abnormal findings of blood chemistry TECHNIQUE: Real-time grayscale ultrasound imaging of the right upper quadrant was performed and images were reviewed. COMPARISON: There are no prior studies for comparison. FINDINGS: Liver: The liver is normal in size, but demonstrates increased echotexture, consistent with steatosis. No focal mass or intrahepatic biliary ductal dilatation is identified. Gallbladder and biliary tree: The gallbladder is unremarkable, without evidence of calculi, wall thickening, or pericholecystic fluid. There is no sonographic Dooley sign. The common bile duct is normal in caliber measuring 5 mm. Right Kidney: The right kidney measures 10.3 cm in length. The right kidney is unremarkable, without evidence of masses, hydronephrosis, or calculi. Pancreas: The pancreas is not well visualized. Abdominal aorta and inferior vena cava: The visualized portions of the abdominal aorta and inferior vena cava are normal in caliber. There is no free fluid in the right upper quadrant. US/US abdomen limited IMPRESSION: Hepatic steatosis. The pancreas is not well visualized. Electronically signed by: Taco Carr MD 03/01/2024 09:12 AM [facility]
== END 2024-03-01 08:17 | disposition home or self-care (01) ==
LOC: HO.HMGCX 08:16
PROVIDERS: PCP Internal Medicine; Visit Provider Internal Medicine
DX: R79.89 Other specified abnormal findings of blood chemistry (principal)
CPT/HCPCS: 76705

== ENCOUNTER → 2024-03-01 08:24 | Outpatient (BNV) | payer OTHER, SELFPAY | PROVIDERS: PCP Internal Medicine; Visit Provider Radiology Diagnostic Radiology | DX: K76.0 Fatty (change of) liver, not elsewhere classified (principal) | CPT/HCPCS: 76705 ==